=== PATIENT | male | born 1975 | race Caucasian/White ===

== ENCOUNTER 2022-01-04 07:59 | Emergency (ER) | payer SELFPAY ==
[2022-01-04] MEDS ORDERED: HYDROcodone/Acetaminophen 5/325 mg Tablet ONE (08:20)
== END 2022-01-04 09:40 | disposition home or self-care (01) ==
LOC: CSHERS 07:59
DX: S20.229A Contusion of unspecified back wall of thorax, initial encounter (principal); S30.811A Abrasion of abdominal wall, initial encounter; F17.210 Nicotine dependence, cigarettes, uncomplicated; W55.29XA Other contact with cow, initial encounter
CPT/HCPCS: 71045